=== PATIENT | female | born 2000 | race African-American/Black ===

== ENCOUNTER 2021-04-03 11:45 | Emergency (ER) | payer OTHER ==
[~2021-04-03] VITALS: Ht 157.5 cm; Wt 108.9 kg
[2021-04-03] MEDS ORDERED: AMOXIL 875 MG875 M1 PO (13:43)
[2021-04-03 13:52] VITALS: BP 132/71
== END 2021-04-03 13:53 | disposition home or self-care (01) ==
LOC: ER 11:45
PROVIDERS: Physician Assistant
DX: J02.9 Acute pharyngitis, unspecified (principal); Z20.822 Contact with and (suspected) exposure to COVID-19